=== PATIENT | male | born 1980 | race Asian ===

== ENCOUNTER 2016-06-29 23:29 | Emergency (ER) | payer MEDICAID ==
[~2016-06-29] VITALS: Ht 175.3 cm; Wt 68.0 kg
--- NOTE | 2016-06-30 00:07 | Emergency Room Report ---
History of Present Illness General Chief Complaint: Upper Respiratory Illness Source: Patient Present Illness HPI Is a 35-year-old male with no past medical history. He presents with chief complaint of coughing congestion. No runny nose. Also his body aches and subjective fever. Been taking [id number] medication without much relief. Denies any other complaint. This has been ongoing for 3-4 days the Allergies: Coded Allergies: No Known Allergies (Unverified , 06/29/16) Patient History Past Medical History: none, see triage record, old chart reviewed Past Surgical History: none Pertinent Family History: none Social History: Denies: smoking Immunizations: other Reviewed Nursing Documentation: PMH: Agreed, PSxH: Agreed Nursing Documentation-PMH Past Medical History: No Stated History Review of Systems Eye: Denies: blurred vision, eye pain ENT: Reports: nose congestion, Denies: ear pain, throat swelling Respiratory: Reports: cough, shortness of breath Cardiovascular: Denies: chest pain, palpitations Gastrointestinal: Denies: abdominal pain, diarrhea, nausea, vomiting Musculoskeletal: Denies: back pain, joint pain Skin: Denies: rash Neurological: Denies: headache, numbness Endocrine: Denies: increased thirst, increased urine Hematologic/Lymphatic: Denies: easy bruising All Other Systems: negative except mentioned in HPI Physical Exam Vital Signs Date Time Temp Pulse Resp B/P Pulse Ox O2 Delivery O2 Flow Rate FiO2 06/29/16 23:36 100.2 100 14 111/67 98 Room Air vitals with low-grade fever Sp02 EP Interpretation: reviewed, normal General Appearance: well appearing, no apparent distress, alert Head: normocephalic, atraumatic Eyes: bilateral eye EOMI, bilateral eye PERRL ENT: hearing grossly normal, normal pharynx, other - Bilateral TMs with air- fluid levels Neck: full range of motion, supple, no meningismus Respiratory: chest non-tender, lungs clear, normal breath sounds Cardiovascular #1: regular rate, rhythm, no murmur Gastrointestinal: normal bowel sounds, non tender, no mass, no organomegaly, no bruit, non-distended Musculoskeletal: back normal, gait/station normal, normal range of motion Psychiatric: mood/affect normal Skin: warm/dry Medical Decision Making Diagnostic Impression: Primary Impression: Upper respiratory infection Qualified Codes: J06.9 - Acute upper respiratory infection, unspecified Additional Impression: Bullous myringitis of both ears ER Course Pt with viral illness. complicated by OM. No e/o sepsis. no e/o pneumonia Last Vital Signs Date Time Temp Pulse Resp B/P Pulse Ox O2 Delivery O2 Flow Rate FiO2 06/29/16 23:36 100.2 100 14 111/67 98 Room Air Status: improved Disposition: HOME, SELF-CARE Condition: Stable Scripts Azithromycin* (ZITHROMAX*) 250 Mg Tablet 250 MG ORAL DAILY, #6 TAB 0 Refills Take two tablets by mouth today, then take one tablet by mouth daily for four days Prov: RICHIE FULTON M.D. 06/30/16 Pseudoephedrine Hcl* (NEXAFED*) 30 Mg Tablet 60 MG ORAL Q6H Y for congestion, #30 TAB Prov: RICHIE FULTON M.D. 06/30/16 Codeine/Promethazine Hcl* (PROMETHAZINE-CODEINE SYRUP*) 118 Ml Syrup 10 ML ORAL Q6H Y for For Cough, #120 ML 0 Refills Prov: RICHIE FULTON M.D. 06/30/16 Patient Instructions: Upper Respiratory Infection, Adult Additional Instructions: Followup with your Dr. in 7 days. Return if worse. Motrin or Tylenol for fever. RICHIE FULTON M.D. Jun 30, 2016 00:07
[2016-06-30] MEDS ORDERED: AZITHROMYCIN250 MG ORAL (00:10)
[2016-06-30] MEDS ORDERED: NEXAFED30 MG ORAL (00:10)
[2016-06-30] MEDS ORDERED: PROMETHAZINE-C118 M1 ORAL (00:10)
[2016-06-30 00:23] VITALS: BP 111/67
== END 2016-06-30 00:20 | disposition home or self-care (01) ==
LOC: EMR 23:45
DX: J06.9 Acute upper respiratory infection, unspecified (principal); H73.013 Bullous myringitis, bilateral; R50.9 Fever, unspecified
CPT/HCPCS: 99284